=== PATIENT | male | born 1970 | race African-American/Black ===

== ENCOUNTER 2016-07-20 08:41 | Emergency (ER) | payer OTHER ==
[~2016-07-20 08:41] MED LIST: CYCLOBENZAPRINE10 M1 PO; FLEXERIL10 MG PO; IBUPROFEN800 M1 PO; MEDROL4 M2 PO; MOTRIN 600 MG600 MG PO; TESSALON PERLE100 M1 PO; VENTOLIN HFA18 GM INH
[2016-07-20 08:48] VITALS: BP 128/79
[2016-07-20] MEDS ORDERED: NAPROSYN500 M1 PO (09:38)
[2016-07-20] MEDS ORDERED: ZOFRAN ODT4 M1 SL (09:38)
[2016-07-20] MEDS ORDERED: AZITHROMYCIN250 M1 PO (09:38)
--- NOTE | 2016-07-20 09:38 | ED INFLUENZA/URI COMPLAINT ---
History of Present Illness General Chief Complaint: Fever Stated Complaint: FEVER, BODY ACHES Source: patient Exam Limitations: no limitations Vital Signs & Intake/Output Vital Signs & Intake/Output Vital Signs Date Time Temp Pulse Resp B/P Pulse O2 O2 Flow FiO2 Ox Delivery Rate 07/20 0912 100.1 07/20 0848 100.3 107 20 128/79 98 Room Air Allergies Coded Allergies: NO KNOWN ALLERGIES (11/17/13) Triage Note: PT PRESENTS TO ER C/O OF FEVERS AND BODY ACHES FOR THE PAST TWO DAYS Triage Nurses Notes Reviewed? yes HPI: This patient is a 46-year-old male who presented to the emergency department today for evaluation of multiple complaints. He reported that approximately 2 days ago he started to develop body aches, chills, sore throat, runny nose, and left-sided ear pain. He reported that today he felt nauseous after drinking some water, but not currently. He denied any abdominal pain or vomiting. 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 The patient reported that he was shoveling all day yesterday and it right shoulder pain. He denied any chest pain, palpitations, difficulty breathing, back pain, or any other associated symptoms. (TR BONILLA,JB) Reconcile Medications Albuterol Sulfate (Ventolin Hfa) 18 GM HFA.AER.AD 2 PUF INH Q4-6 PRN PRN SOB Azithromycin 250 MG TABLET 1 DP PO AD SINUSITIS 2 the first day followed by 1 for days 2-5 Benzonatate (Tessalon Perle) 100 MG CAPSULE 1 TAB PO TID COUGH Cyclobenzaprine HCl 10 MG TABLET 1 TAB PO TID PRN SPASM Ibuprofen 800 MG TABLET 1 TAB PO TID PRN PAIN Methylprednisolone. (Medrol) 4 MG TAB.DS.PK 1 DP PO AD INFLAMMATION 6 on day 1 then reduce by one tablet daily until gone Naproxen (Naprosyn) 500 MG TABLET 1 TAB PO BID PRN PAIN AND INFLAMMATION Ondansetron (Zofran Odt) 4 MG TAB.RAPDIS 1 TAB SL TID PRN NAUSEA (KADIE BROWNLEE,MECHE) Past History Travel History Traveled to [place] past 21 day No Medical History Any Pertinent Medical History? see below for history Neurological: NONE EENT: NONE Cardiovascular: NONE Respiratory: NONE Gastrointestinal: NONE Hepatic: NONE Renal: NONE Musculoskeletal: NONE Psychiatric: NONE Endocrine: NONE Surgical History Surgical History: N Psychosocial History What is your primary language Azeri Tobacco Use: Never used Family History Hx Contributory? No (JB ARMANDO PA-C) Review of Systems Review of Systems Constitutional: Reports: see HPI. EENTM: Reports: see HPI. Respiratory: Reports: no symptoms. Cardiovascular: Reports: no symptoms. GI: Reports: see HPI. Genitourinary: Reports: no symptoms. Musculoskeletal: Reports: see HPI. Skin: Reports: no symptoms. Neurological/Psychological: Reports: no symptoms. All Other Systems: Reviewed and Negative (JB ARMANDO PA-C) Physical Exam Physical Exam Ears, Nose, Throat: moist mucous membrane, hearing grossly normal, Tympanic normal, pharynx normal, NASAL CONGESTION NOTED Comments: Well-developed well-nourished person in no acute distress HEENT: PERRLA bilaterally. Bilateral TM pearly dominguez and nonbulging. Bilateral external auditory canal with mild amount of cerumen and no erythema or edema No tonsillar exudates. No oral pharyngeal lesions or edema. No uvular shift Neck: Supple with bilateral submandibular and tonsillar lymphadenopathy which is nontender Back: Normal gait. Normal inspection Cardiovascular: Regular rate and rhythm with no murmurs, rubs, or gallops. No JVD. No carotid bruits. Capillary refill less than 2 seconds Respiratory: Chest nontender. No respiratory distress. Breath sounds clear to auscultation bilaterally with no wheezes, rales, rhonchi Abdomen: Soft, nontender and nondistended Right upper extremity: No effusions overlying erythema or ecchymosis to the joint spaces. Radial brachial pulses 2+ and strong. Tenderness to palpation over the acromioclavicular joint . Full range of motion at the shoulder, elbow, and wrist. Capillary refill less than 2 seconds Neuro: Alert oriented x3, cranial nerves II through XII grossly intact. Skin: No appreciable rash on exposed skin, skin is warm and dry. Psych: Mood and affect is normal Core Measures Severe Sepsis Present: No Septic Shock Present: No (JB ARMANDO PA-C) Progress Differential Diagnosis: influenza, meningitis, otitis, pneumonia, pharyngitis, sinusitis Plan of Care: Orders Procedure Date/time Status RAPID VIRAL INFLUENZA A 07/20 0846 Complete Initial ED EKG: none (JB ARMANDO PA-C) Departure Departure Disposition: HOME OR SELF CARE Condition: Stable Clinical Impression Primary Impression: Sinusitis Qualifiers: Sinusitis location: unspecified location Chronicity: unspecified Qualified Code: J32.9 - Chronic sinusitis, unspecified Referrals: OMER AYALA APRN (PCP/Family) Additional Instructions: Please take antibiotic as prescribed and for its full duration. Take naproxen as prescribed for pain and inflammation. Take Zofran as prescribed for nausea. Please rest and follow-up with your primary care physician. Return for any worsening symptoms or concerns. Departure Forms: Customer Survey General Discharge Information Prescriptions: Current Visit Scripts Azithromycin 1 DP PO AD #6 TAB 2 the first day followed by 1 for days 2-5 Ondansetron (Zofran Odt) 1 TAB SL TID PRN NAUSEA #10 TAB Naproxen (Naprosyn) 1 TAB PO BID PRN PAIN AND INFLAMMATION #20 TAB (JB ARMANDO PA-C) PA/VORTEX OPERATOR Co-Sign Statement Statement: ED Attending supervision documentation- [] I saw and evaluated the patient. I have also reviewed all the pertinent lab results and diagnostic results. I agree with the findings and the plan of care as documented in the PA's/VORTEX OPERATOR's documentation. [X] I have reviewed the ED Record and agree with the PA's/VORTEX OPERATOR's documentation. [] Additions or exceptions (if any) to the PAs/VORTEX OPERATOR's note and plan are summarized below: [] (KADIE BROWNLEE,MECHE)
== END 2016-07-20 09:46 ==
LOC: ERH 08:41
DX: J32.9 Chronic sinusitis, unspecified (principal)
CPT/HCPCS: 87804; 87804-59